=== PATIENT | male | born 1935 | race Caucasian/White ===

== ENCOUNTER → 2016-11-26 | Outpatient (CLI) | payer MEDICARE, OTHER | END | disposition home or self-care (01) | LOC: CLAB 11:32 | DX: C61 Malignant neoplasm of prostate (principal) | CPT/HCPCS: 36415; 84153 ==

== ENCOUNTER → 2017-01-21 | Outpatient (CLI) | payer MEDICARE, OTHER ==
--- NOTE | ~2017-01-21 | US37 ---
[facility] A Service of [facility] RADIOLOGY TEXT RESULTS PATIENT: VINITA PARKS LOCATION: CNIV : 35 UNIT #: [id number] AGE: [address]: OYMAIRA TIERNEY MD SEX: M ORDER DR: [id number] [place], [place] [address] [id number] O MR#: [id number] Acc #: [id number] NAME: VINITA PARKS : 1935 SEX: M STUDY DATE/TIME: 01/21/2017 15:12 UNIT: CNIV ROOM: STUDY DESCRIPTION: US Carotid W/Doppler Bilateral Attending Physician: Yomaira Tierney M.D. Referring Physician: Yomaira Tierney M.D. Ordering Physician: Yomaira Tierney M.D. Primary Care Physician: Yomaira Tierney M.D. MEDICAL IMAGING REPORT This report is preliminary unless electronic signature is present EXAM Carotid Doppler HISTORY Right visual loss for 1 month. TECHNIQUE Bilateral carotid ultrasound examination was performed using ontiveros-scale, spectral Doppler, and color-flow Doppler imaging. Carotid flow was assessed using standards based NASCET pathology. FINDINGS Ultrasound examination of the carotid arteries shows calcified plaque at the carotid bifurcations bilaterally. This is less than 50% bilaterally. Doppler evaluation shows normal flow velocities and normal Doppler waveforms within the carotid and vertebral arteries bilaterally. Peak systolic internal carotid artery flow velocities measure up to 101 cm/sec on the right and 101 cm/sec on the left. There is no evidence of significant carotid stenosis in the neck. IMPRESSION Mild carotid disease. No Doppler ultrasound evidence of flow-limiting or clinically significant carotid stenosis. Dictated by... Kaylee Piedra M.D. THIS IS AN ELECTRONICALLY VERIFIED REPORT Kaylee Piedra M.D. at 01/22/2017 5:59 PM AFF/pcl [facility] A Service [facility] RADIOLOGY TEXT RESULTS PATIENT: VNIITA PARKS LOCATION: [facility] : 35 UNIT #: [id number] AGE: [address]: YOMAIRA TIERNEY MD SEX: M ORDER DR: TD: 01/21/2017 20:42 JOB #: [id number] MEDICAL IMAGING REPORT Page 1 of 1 COPY
== END | disposition home or self-care (01) ==
LOC: CNIV 14:47
DX: G45.3 Amaurosis fugax (principal)
CPT/HCPCS: 93880